=== PATIENT | male | born 1985 | race Caucasian/White ===

== ENCOUNTER 2021-03-20 18:59 | Outpatient (REF) | payer MEDICARE, MEDICAID, SELFPAY ==
[2021-03-20 19:45] LABS: ALT 43 U/L (16-63); AST 72 U/L (15-37); Albumin 4.1 g/dL (3.4-5.0); Alkaline Phosphatase 89 U/L (46-116); BUN 15 mg/dL (7-18); Bilirubin, Total 0.7 mg/dL (0.2-1.0); CREATININE 0.8 mg/dL (0.70-1.30); Calculated LDL 108 mg/dL (<100); Chloride 104 mmol/L (98-107); Cholesterol 178 mg/dL (<200); Glucose 84 mg/dL (74-106); HDL Cholesterol 57 mg/dL (40-60); Sodium 140 mmol/L (136-145); Total Protein 7.3 g/dL (6.4-8.2); Triglyceride 69 mg/dL (<150)
== END 2021-03-20 19:00 | disposition home or self-care (01) ==
LOC: NCHCN 18:59
PROVIDERS: Visit Provider Internal Medicine
DX: E78.5 Hyperlipidemia, unspecified (principal); Z00.00 Encounter for general adult medical examination without abnormal findings
CPT/HCPCS: 80053; 80061

== ENCOUNTER 2021-06-23 19:23 | Outpatient (REF) | payer MEDICARE, MEDICAID, SELFPAY ==
[2021-06-23 17:12] LABS: ALT 18 U/L (16-63); AST 65 U/L (15-37); Alkaline Phosphatase 86 U/L (46-116); Bilirubin, Direct 0.1 mg/dL (0.0-0.2); Bilirubin, Total 0.5 mg/dL (0.2-1.0); Total Protein 7.1 g/dL (6.4-8.2)
== END 2021-06-23 19:24 | disposition home or self-care (01) ==
LOC: NCHCN 19:23
PROVIDERS: Visit Provider Internal Medicine
DX: R94.5 Abnormal results of liver function studies (principal)
CPT/HCPCS: 80076

== ENCOUNTER 2021-09-10 20:55 | Outpatient (REF) | payer MEDICARE, MEDICAID, SELFPAY ==
[2021-09-10 21:21] LABS: ALT 33 U/L (16-63); AST 71 U/L (15-37); Alkaline Phosphatase 85 U/L (46-116); Bilirubin, Direct 0.1 mg/dL (0.0-0.2); Bilirubin, Total 0.4 mg/dL (0.2-1.0); Total Protein 7.3 g/dL (6.4-8.2)
== END 2021-09-10 20:56 | disposition home or self-care (01) ==
LOC: NCHCN 20:55
PROVIDERS: Visit Provider Internal Medicine
DX: R94.5 Abnormal results of liver function studies (principal)
CPT/HCPCS: 80076

== ENCOUNTER 2021-12-31 17:46 | Outpatient (REF) | payer MEDICARE, MEDICAID, SELFPAY ==
[2021-12-31 15:31] LABS: Iron 192 ug/dL (65-175)
[2021-12-31 15:50] LABS: Ferritin 296 ng/mL (26-388)
[2021-12-31 16:53] LABS: Total Iron Binding Capacity 240 ug/dL (250-450); Transferrin Sat 80 % (20-55)
[2022-01-01 09:07] LABS: HBs Antibody, Quant 38.6 mIU/mL (See Note); Hepatitis B Surface Ab Positive (See Note)
[2022-01-01 09:24] LABS: Hepatitis B Surface Ag Negative (Negative)
[2022-01-01 09:47] LABS: Hep B Core Antibody Negative (Negative)
[2022-01-01 09:58] LABS: Hepatitis C Ab w Rflx HCV PCR Negative (Negative)
[2022-01-01 11:57] LABS: Smooth Muscle Ab Screen Negative (Negative)
[2022-01-01 14:55] LABS: Liver/Kidney Microsome Type 1 <5.0 U
[2022-01-01 15:43] LABS: Mitochondrial Ab, M2 <0.1 U
== END 2021-12-31 17:47 | disposition home or self-care (01) ==
LOC: NCHCN 17:46
PROVIDERS: Visit Provider Internal Medicine
DX: R94.5 Abnormal results of liver function studies (principal); R79.89 Other specified abnormal findings of blood chemistry
CPT/HCPCS: 83516; 86704; 86706; 86803; 87340; 82728; 83540; 83550; 86255

== ENCOUNTER 2022-01-07 10:39 | Outpatient (REF) | payer MEDICARE, MEDICAID, SELFPAY ==
[2022-01-07 14:59] LABS: HCT 44.2 % (40.0-50.0); HGB 16.2 g/dL (13.5-17.5); MCH 33.1 pg (27.0-33.0); MCHC 36.7 % (32.0-36.0); MCV 90 fL (80-95); Platelet Count 252 10^3/uL (130-400); RBC 4.89 10^6/uL (4.36-5.78); RDW 11.8 % (11.8-14.1); RDW-SD 39.2 fL; WBC 5.72 10^3/uL (4.4-10.8)
[2022-01-09 18:13] LABS: Specimen WB Whole Blood
== END 2022-01-07 10:40 | disposition home or self-care (01) ==
LOC: NCHCN 10:39
PROVIDERS: Visit Provider Internal Medicine
DX: R78.89 Finding of other specified substances, not normally found in blood (principal); R94.5 Abnormal results of liver function studies
CPT/HCPCS: 81256; 85027

== ENCOUNTER 2022-05-21 16:22 | Outpatient (REF) | payer MEDICARE, MEDICAID, SELFPAY ==
[2022-05-21 15:01] LABS: HCT 22.3 % (40.0-50.0); MCH 25.1 pg (27.0-33.0); MCHC 30.9 % (32.0-36.0); MCV 81 fL (80-95); MPV 10.2 fL (8.0-11.0); Platelet Count 304 10^3/uL (130-400); RBC 2.75 10^6/uL (4.36-5.78); RDW 14.4 % (11.8-14.1); RDW-SD 42.2 fL; WBC 3.86 10^3/uL (4.4-10.8)
[2022-05-21 15:05] LABS: Iron 13 ug/dL (65-175); Total Iron Binding Capacity 322 ug/dL (250-450); Transferrin Sat 4 % (20-55)
[2022-05-21 15:07] LABS: HGB 6.9 g/dL (13.5-17.5)
[2022-05-21 15:27] LABS: ALT 25 U/L (16-63); AST 68 U/L (15-37); Albumin 3.9 g/dL (3.4-5.0); Alkaline Phosphatase 75 U/L (46-116); Bilirubin, Total 0.3 mg/dL (0.2-1.0); Ferritin 8 ng/mL (26-388); Total Protein 6.9 g/dL (6.4-8.2)
[2022-05-21 15:37] LABS: Bilirubin, Direct < 0.1 mg/dL (0.0-0.2)
== END 2022-05-21 16:23 | disposition home or self-care (01) ==
LOC: NCHCN 16:22
PROVIDERS: Visit Provider Internal Medicine
DX: E83.119 Hemochromatosis, unspecified (principal); R94.5 Abnormal results of liver function studies
CPT/HCPCS: 80076; 85027; 82728; 83540; 83550

== ENCOUNTER 2022-06-18 12:32 | Outpatient (REF) | payer MEDICARE, MEDICAID, SELFPAY ==
[2022-06-18 16:57] LABS: HCT 22.6 % (40.0-50.0); MCH 20.8 pg (27.0-33.0); MCHC 28.8 % (32.0-36.0); MCV 72 fL (80-95); MPV 10.3 fL (8.0-11.0); Platelet Count 317 10^3/uL (130-400); RBC 3.13 10^6/uL (4.36-5.78); RDW 17.4 % (11.8-14.1); RDW-SD 46.2 fL
[2022-06-18 17:01] LABS: HGB 6.5 g/dL (13.5-17.5)
== END 2022-06-18 12:33 | disposition home or self-care (01) ==
LOC: NCHCN 12:32
PROVIDERS: Visit Provider Internal Medicine
DX: D64.9 Anemia, unspecified (principal); E83.119 Hemochromatosis, unspecified
CPT/HCPCS: 85027

== ENCOUNTER 2022-06-26 11:52 | Outpatient (REF) | payer MEDICARE, MEDICAID, SELFPAY ==
[2022-06-26 15:22] LABS: HCT 22.9 % (40.0-50.0); MCH 19.9 pg (27.0-33.0); MCHC 28.8 % (32.0-36.0); MCV 69 fL (80-95); MPV 10.1 fL (8.0-11.0); Platelet Count 307 10^3/uL (130-400); RBC 3.31 10^6/uL (4.36-5.78); RDW 17.7 % (11.8-14.1); RDW-SD 44.9 fL; WBC 3.68 10^3/uL (4.4-10.8)
[2022-06-26 15:35] LABS: HGB 6.6 g/dL (13.5-17.5)
[2022-06-26 15:52] LABS: Ferritin 7 ng/mL (26-388)
== END 2022-06-26 11:53 | disposition home or self-care (01) ==
LOC: NCHCN 11:52
PROVIDERS: Visit Provider Internal Medicine
DX: D64.9 Anemia, unspecified (principal)
CPT/HCPCS: 85027; 82728

== ENCOUNTER 2022-07-23 15:21 | Outpatient (REF) | payer MEDICARE, MEDICAID, SELFPAY ==
[2022-07-23 16:40] LABS: HCT 29.8 % (40.0-50.0); HGB 8.6 g/dL (13.5-17.5); MCH 20.9 pg (27.0-33.0); MCHC 28.9 % (32.0-36.0); MCV 72 fL (80-95); MPV 10.2 fL (8.0-11.0); Platelet Count 301 10^3/uL (130-400); RBC 4.12 10^6/uL (4.36-5.78); RDW 26.5 % (11.8-14.1); RDW-SD 66.8 fL; WBC 3.66 10^3/uL (4.4-10.8)
[2022-07-23 17:14] LABS: ALT 26 U/L (16-63); AST 50 U/L (15-37); Albumin 3.8 g/dL (3.4-5.0); Alkaline Phosphatase 74 U/L (46-116); Bilirubin, Total 0.4 mg/dL (0.2-1.0); Ferritin 21 ng/mL (26-388)
[2022-07-23 18:15] LABS: Bilirubin, Direct 0.1 mg/dL (0.0-0.2)
[2022-07-23 18:43] LABS: Iron 266 ug/dL (65-175); Total Iron Binding Capacity 289 ug/dL (250-450); Transferrin Sat 92 % (20-55)
== END 2022-07-23 15:22 | disposition home or self-care (01) ==
LOC: NCHCN 15:21
PROVIDERS: Visit Provider Internal Medicine
DX: D64.9 Anemia, unspecified (principal); R94.5 Abnormal results of liver function studies; E83.110 Hereditary hemochromatosis
CPT/HCPCS: 80076; 85027; 82728; 83540; 83550

== ENCOUNTER 2022-08-31 10:47 | Outpatient (REF) | payer MEDICARE, MEDICAID, SELFPAY ==
[2022-08-31 15:39] LABS: HCT 33.8 % (40.0-50.0); HGB 10.2 g/dL (13.5-17.5); MCH 21.9 pg (27.0-33.0); MCHC 30.2 % (32.0-36.0); MPV 9.8 fL (8.0-11.0); Platelet Count 292 10^3/uL (130-400); RBC 4.66 10^6/uL (4.36-5.78); RDW-SD 60.6 fL; WBC 4.37 10^3/uL (4.4-10.8)
[2022-08-31 15:50] LABS: Iron 24 ug/dL (65-175); Total Iron Binding Capacity 297 ug/dL (250-450); Transferrin Sat 8 % (20-55)
[2022-08-31 16:04] LABS: Ferritin 8 ng/mL (26-388)
[2022-08-31 16:35] LABS: MCV 73 fL (80-95); RDW 23.7 % (11.8-14.1)
== END 2022-08-31 10:48 | disposition home or self-care (01) ==
LOC: NCHCN 10:47
PROVIDERS: Visit Provider Internal Medicine
DX: E83.110 Hereditary hemochromatosis (principal); D64.9 Anemia, unspecified
CPT/HCPCS: 85027; 82728; 83540; 83550

== ENCOUNTER 2022-11-11 12:26 | Outpatient (REF) | payer MEDICARE, MEDICAID, SELFPAY ==
[2022-11-11 17:21] LABS: HCT 36.8 % (40.0-50.0); HGB 11.3 g/dL (13.5-17.5); MCHC 30.7 % (32.0-36.0); MPV 9.5 fL (8.0-11.0); Platelet Count 314 10^3/uL (130-400); RBC 4.92 10^6/uL (4.36-5.78); RDW 19.3 % (11.8-14.1); RDW-SD 51.2 fL; WBC 5.24 10^3/uL (4.4-10.8)
[2022-11-11 17:48] LABS: Ferritin 7 ng/mL (26-388)
[2022-11-11 18:42] LABS: MCV 75 fL (80-95)
== END 2022-11-11 12:27 | disposition home or self-care (01) ==
LOC: NCHCN 12:26
PROVIDERS: Visit Provider Internal Medicine
DX: E83.110 Hereditary hemochromatosis (principal); D64.9 Anemia, unspecified
CPT/HCPCS: 85027; 82728

== ENCOUNTER 2023-02-01 19:05 | Outpatient (REF) | payer MEDICARE, MEDICAID, SELFPAY ==
[2023-02-01 21:33] LABS: HCT 39.1 % (40.0-50.0); HGB 12.8 g/dL (13.5-17.5); MCH 25.3 pg (27.0-33.0); MCHC 32.7 % (32.0-36.0); MCV 77 fL (80-95); MPV 9.6 fL (8.0-11.0); Platelet Count 307 10^3/uL (130-400); RBC 5.06 10^6/uL (4.36-5.78); RDW 16.2 % (11.8-14.1); RDW-SD 45.9 fL; WBC 7.15 10^3/uL (4.4-10.8)
[2023-02-01 22:00] LABS: Ferritin 12 ng/mL (26-388)
== END 2023-02-01 19:06 | disposition home or self-care (01) ==
LOC: NCHCN 19:05
PROVIDERS: Visit Provider Internal Medicine
DX: E83.110 Hereditary hemochromatosis (principal)
CPT/HCPCS: 85027; 82728

== ENCOUNTER 2023-12-06 18:03 | Outpatient (REF) | payer MEDICARE, MEDICAID, SELFPAY ==
[2023-12-06 21:34] LABS: HCT 44.9 % (40.0-50.0); HGB 15.8 g/dL (13.5-17.5); MCH 30.9 pg (27.0-33.0); MCHC 35.2 % (32.0-36.0); MCV 88 fL (80-95); MPV 9.9 fL (8.0-11.0); Platelet Count 261 10^3/uL (130-400); RBC 5.12 10^6/uL (4.36-5.78); RDW 13.2 % (11.8-14.1); RDW-SD 42.7 fL; WBC 5.91 10^3/uL (4.4-10.8)
[2023-12-06 21:46] LABS: Iron 64 ug/dL (65-175); Total Iron Binding Capacity 261 ug/dL (250-450); Transferrin Sat 25 % (20-55)
[2023-12-06 22:27] LABS: ALT 24 U/L (16-63); AST 51 U/L (15-37); Alkaline Phosphatase 93 U/L (46-116); Anion Gap 8.9 mmol/L (3-11); BUN 14 mg/dL (7-18); Bilirubin, Total 0.61 mg/dL (0.2-1.0); CO2 30.1 mmol/L (21.0-32.0); Calcium 9.3 mg/dL (8.5-10.1); Chloride 102 mmol/L (98-107); Ferritin 19 ng/mL (26-388); Glucose 73 mg/dL (74-106); Potassium 3.8 mmol/L (3.5-5.1); Sodium 141 mmol/L (136-145); Total Protein 7.2 g/dL (6.4-8.2)
== END 2023-12-06 18:04 | disposition home or self-care (01) ==
LOC: NCHCN 18:03
PROVIDERS: Visit Provider Internal Medicine
DX: E83.110 Hereditary hemochromatosis (principal)
CPT/HCPCS: 80053; 85027; 82728; 83540; 83550